=== PATIENT | female | born 1965 | race Caucasian/White ===

== ENCOUNTER 2016-10-22 13:24 | Emergency (ER) | payer BC ==
[~2016-10-22] VITALS: Ht 177.8 cm; Wt 144.7 kg
[~2016-10-22 13:24] MED LIST: ALBUTEROL SULF8.5 GM IH; ASPIRIN81 M2 PO; BACTRIM,SEPT1 TABLET PO; CALCIO DEL MAR500 MG; CENTRUM COMPLE1 EACH; COUMADIN5 MG; COUMADIN7.5 MG; FLEXERIL10 MG PO; FUROSEMIDE20 MG PO; IRON325 MG PO; LEVAQUIN500 MG PO; MEDROL DOSEPAK4 MG PO; METOPROLOL SUCC50 MG PO; MOTRIN800 MG PO; NABUMETONE750 MG PO; NAPROSYN500 MG PO; NAPROXEN500 MG PO; POTASSIUM CHLO10 ME3 PO; PREDNISONE20 MG PO; PREDNISONE50 MG PO; ROBAXIN500 MG PO; SIMVASTATIN20 MG; TRAMADOL HCL50 MG PO; ULTRAM50 MG PO; VENTOLIN HFA18 GM IH
[2016-10-22] MEDS ORDERED: FIORICET 50-301 EACH PO (16:13)
[2016-10-22] MEDS ORDERED: FLEXERIL10 MG PO (16:13)
[2016-10-22 16:28] VITALS: BP 132/72
== END 2016-10-22 16:30 | disposition home or self-care (01) ==
LOC: EME 13:24 → EXP 13:24
DX: G44.209 Tension-type headache, unspecified, not intractable (principal); I10 Essential (primary) hypertension; Z86.718 Personal history of other venous thrombosis and embolism; Z79.82 Long term (current) use of aspirin; Z87.891 Personal history of nicotine dependence
CPT/HCPCS: 93005; 99281; 99284

== ENCOUNTER 2016-11-03 04:26 | Observation (INO) | payer BC ==
[~2016-11-03] VITALS: Ht 177.8 cm; Wt 129.6 kg
[~2016-11-03 04:26] MED LIST changes: +FIORICET 50-301 EACH PO
[2016-11-03 05:07] LABS: BASOPHIL COUNT 0.1 K/uL (0-0.1); EOSINOPHIL (%) 4.3 % (0-5); EOSINOPHIL COUNT 0.4 K/uL (0-0.3); HEMATOCRIT 39.9 % (36.0-46.0); IMMATURE GRANULOCYTE (%) 0.4 % (0.0-0.7); INSTRUMENT ABS NEUTROPHIL CT 6.2 K/uL; LYMPHOCYTE COUNT 2.6 K/uL (1.0-2.8); MCH 30.3 PG (29.0-34.0); MCHC 34.3 G/DL (30.0-36.0); MCV 88.3 FL (83-99); MEAN PLAT.VOLUME 10.6 uM^3 (9.5-12.4); MONOCYTE (%) 7.4 % (3-12); MONOCYTE COUNT 0.7 K/uL (0-0.8); NEUTROPHIL (%) 61.7 % (45-76); NEUTROPHIL COUNT 6.2 K/uL (1.8-6.4); PLATELET COUNT 218 K/uL (156-360); RBC DIS.WIDTH-CV 12.3 % (11.8-14.6); RED BLOOD COUNT 4.52 M/uL (3.80-5.20); WHITE BLOOD COUNT 10.1 K/uL (4.1-10.2)
[2016-11-03 05:26] LABS: TROP-I INTERPRETATION NEGATIVE; TROPONIN-I < 0.01 ng/mL (0.0-0.30)
[2016-11-03 05:32] LABS: CHLORIDE 105 mEq/L (99-109); POTASSIUM 3.9 mEq/L (3.7-5.4); SODIUM 137 mEq/L (136-147)
[2016-11-03 05:34] LABS: GLUCOSE 159 mg/dL (70-99)
[2016-11-03 05:35] LABS: ANION GAP 12 MEQ/L (2-14)
[2016-11-03 05:36] LABS: TOTAL BILIRUBIN 0.3 mg/dL (0.0-1.0)
[2016-11-03 05:37] LABS: ALKALINE PHOSPHATASE 75 IU/L (3-129)
[2016-11-03 05:38] LABS: GFR ESTIMATE (CALCULATED) > 59 mL/min/
[2016-11-03 05:39] LABS: UREA NITROGEN (BUN) 11 mg/dL (9-23)
[2016-11-03 06:51] LABS: HDL CHOLESTEROL 46 MG/DL (Desirable>=50); LDL CHOLESTEROL 103 mg/dL (Desirable<100); NON-HDL CHOLESTEROL 125 mg/dL (Desirable<160); TOTAL CHOLESTEROL 171 mg/dL (Desirable<200); TRIGLYCERIDES 111 MG/DL (Normal: <150)
[2016-11-03 07:03] LABS: Estimated Average Glucose 146 mg/dL (70-123); HEMOGLOBIN A1c (GLYCOHEMOGLOB) 6.7 % HGB (Below 5.7)
[2016-11-03] MEDS ORDERED: HYDROCHLOROTHIA25 MG PO (07:36)
[2016-11-03] MEDS ORDERED: CELEXA20 MG PO (07:37)
[2016-11-03] MEDS ORDERED: WELLBUTRIN XL150 MG PO (07:37)
[2016-11-03] MEDS ORDERED: NORVASC5 MG PO (07:37)
[2016-11-03] MEDS ORDERED: COZAAR100 MG PO (07:38)
[2016-11-03 07:41] LABS: ADD MIUA? YES; BILIRUBIN NEGATIVE; BLOOD SMALL; COLOR YELLOW ((YELLOW)); GLUCOSE (STRIP) NEGATIVE; KETONES NEGATIVE; LEUKOCYTES LARGE; NITRITE NEGATIVE; PROTEIN (STRIP) NEGATIVE; UROBILINOGEN 0.2 MG/DL (0.2-1.0)
[2016-11-03 07:54] LABS: BACTERIA NONE SEEN /HPF; EPITHELIAL CELLS 2+ /HPF; MUCUS NONE SEEN /LPF; RED BLOOD CELLS 0-5 /HPF (0-5); UCUL ADDED? YES; WHITE BLOOD CELLS TNTC /HPF (0-5)
[2016-11-03 09:24] VITALS: BP 140/70
[2016-11-03 11:23] VITALS: BP 121/56
[2016-11-03 18:00] VITALS: BP 120/58
[2016-11-04 00:32] VITALS: BP 114/56
[2016-11-04 04:34] VITALS: BP 115/55
[2016-11-04 09:45] VITALS: BP 126/62
== END 2016-11-04 13:03 | disposition home or self-care (01) ==
LOC: EME 04:26 → 5WEST 08:50 → EDOF 08:50 → 5WEST 09:16
PROVIDERS: Emergency Medicine
DX: R20.0 Anesthesia of skin (principal); H53.8 Other visual disturbances; R51 Headache; I10 Essential (primary) hypertension; J45.20 Mild intermittent asthma, uncomplicated; F41.9 Anxiety disorder, unspecified; F32.9 Major depressive disorder, single episode, unspecified; E66.01 Morbid (severe) obesity due to excess calories; Z68.41 Body mass index [BMI] 40.0-44.9, adult; Z86.73 Personal history of transient ischemic attack (TIA), and cerebral infarction without residual deficits; Z87.891 Personal history of nicotine dependence
CPT/HCPCS: 70450; 71020; 80053; 80061; 81003; 83036; 84484; 85025; 87086; 93005; 93880; 99202; 99281; 99285; G0378; J0780; J1200; J3360; J7030

== ENCOUNTER 2017-09-21 12:58 | Emergency (ER) | payer OTHER ==
[~2017-09-21] VITALS: Ht 177.8 cm; Wt 152.3 kg
[~2017-09-21 12:58] MED LIST changes: +CELEXA20 MG PO; +COZAAR100 MG PO; +HYDROCHLOROTHIA25 MG PO; +NORVASC5 MG PO; +WELLBUTRIN XL150 MG PO
[2017-09-21 13:46] LABS: HEMATOCRIT 41.2 % (36.0-46.0); HEMOGLOBIN 14.4 G/DL (11.9-15.5); MCH 31.4 PG (29.0-34.0); PLATELET COUNT 206 K/uL (156-360); RED BLOOD COUNT 4.58 M/uL (3.80-5.20); WHITE BLOOD COUNT 8.9 K/uL (4.1-10.2)
[2017-09-21 13:56] LABS: CHLORIDE 103 mEq/L (99-109); POTASSIUM 3.8 mEq/L (3.7-5.4); SODIUM 138 mEq/L (136-147)
[2017-09-21 13:57] LABS: GLUCOSE 229 mg/dL (70-99)
[2017-09-21 14:01] LABS: CREATININE 0.8 mg/dL (0.6-1.3); GFR ESTIMATE (CALCULATED) > 59 mL/min/
[2017-09-21 14:02] LABS: UREA NITROGEN (BUN) 12 mg/dL (9-23)
[2017-09-21 14:06] LABS: TROP-I INTERPRETATION NEGATIVE; TROPONIN-I < 0.01 ng/mL (0.0-0.30)
[2017-09-21 16:48] VITALS: BP 125/66
== END 2017-09-21 16:50 | disposition home or self-care (01) ==
LOC: EME 12:58
DX: R07.9 Chest pain, unspecified (principal); R06.02 Shortness of breath; I10 Essential (primary) hypertension; K21.9 Gastro-esophageal reflux disease without esophagitis; Z86.718 Personal history of other venous thrombosis and embolism; F32.9 Major depressive disorder, single episode, unspecified; F41.9 Anxiety disorder, unspecified; Z79.82 Long term (current) use of aspirin; Z88.5 Allergy status to narcotic agent; Z87.891 Personal history of nicotine dependence
CPT/HCPCS: 71046; 80048 91; 84484; 85027; 93005; 99281; 99284